=== PATIENT | female | born 1955 | race Hispanic/Latino ===

== ENCOUNTER 2017-05-15 16:29 | Inpatient (IN) | payer SELFPAY ==
[2017-05-15 16:34] VITALS: BMI 28.7
--- NOTE | 2017-05-15 17:11 | ED PDOC ---
HPI: Psych/Substance Abuse Time Seen by Provider: 05/15/17 16:45 Chief Complaint (Nursing): Psychiatric Evaluation Chief Complaint (Provider): Psychiatric Evaluation History Per: Patient History/Exam Limitations: no limitations Current Symptoms Are (Timing): Still Present Additional Complaint(s): 61 y/o female with a past medical history of depression and hypercholesterolemia who presents to the emergency department with a complaint of having suicidal ideation. Reports she wants to kill herself but does not have any active plans. Patient states she lives alone and gets counseling regularly 2-3 times a week by a group that visits her at home. Denies chest pain , shortness of breath, headache, dizziness, fever, chills, abdominal pain, or urinary symptoms. PMD: Dr. Finn Anderson MD Past Medical History Reviewed: Historical Data, Nursing Documentation, Vital Signs Vital Signs: Last Vital Signs Temp 98.1 F 05/15/17 16:33 Pulse 74 05/15/17 16:33 Resp 16 05/15/17 16:33 BP 165/100 H 05/15/17 16:33 Pulse Ox 100 05/15/17 16:33 - Medical History PMH: Depression, Hypercholesterolemia - Surgical History Other surgeries: Oophorectomy (left) with adhesion complications - Family History Family History: States: Unknown Family Hx - Social History Current smoker - smoking cessation education provided: No Alcohol: None Drugs: Denies - Home Medications Home Medications: Ambulatory Orders Medication Instructions Recorded Aspirin [Adult Low Dose Aspirin EC] 1 tab PO DAILY 05/15/17 DULoxetine [Cymbalta] 1 tab PO DAILY 05/15/17 Risperidone [Risperdal] 1 tab PO DAILY 05/15/17 Simvastatin [Zocor] 1 tab PO DAILY 05/15/17 - Allergies Allergies/Adverse Reactions: Allergies Allergy/AdvReac Type Severity Reaction Status Date / Time No Known Allergies Allergy Verified 05/15/17 16:33 Review of Systems ROS Statement: Except As Marked, All Systems Reviewed And Found Negative Constitutional: Negative for: Fever, Chills Cardiovascular: Negative for: Chest Pain Respiratory: Negative for: Shortness of Breath Gastrointestinal: Negative for: Abdominal Pain Genitourinary Female: Negative for: Dysuria, Frequency, Incontinence, Hematuria Neurological: Negative for: Headache, Dizziness Psych: Positive for: Depression, Suicidal ideation Physical Exam - Reviewed Nursing Documentation Reviewed: Yes Vital Signs Reviewed: Yes - Physical Exam Appears: Positive for: Non-toxic, No Acute Distress Head Exam: Positive for: ATRAUMATIC, NORMAL INSPECTION, NORMOCEPHALIC Skin: Positive for: Normal Color, Warm, Dry Neck: Positive for: Normal, Supple Cardiovascular/Chest: Positive for: Regular Rate, Rhythm. Negative for: Murmur Respiratory: Positive for: Normal Breath Sounds. Negative for: Accessory Muscle Use, Respiratory Distress Gastrointestinal/Abdominal: Positive for: Normal Exam, Soft. Negative for: Tenderness Extremity: Positive for: Normal ROM. Negative for: Pedal Edema Neurologic/Psych: Positive for: Alert, Oriented (x3) - Laboratory Results Result Diagrams: 05/15/17 20:10 05/15/17 20:10 - ECG O2 Sat by Pulse Oximetry: 100 (RA) Pulse Ox Interpretation: Normal Medical Decision Making Medical Decision Making: Time: 1651 Initial Impression: Suicidal ideation status post depression Initial Plan: --Crisis Evaluation As Ordered: Evaluation will indicate if patient meets criteria for admission. Time: 20:10 --Alcohol Serum --BMP --Drug Screen, Urine --EKG --CBC w/ diff --Chest x-ray --Urinalysis --Reevaluation Scribe~Attestation: Documented by Geetha Ponce, acting as a scribe for Rochelle Hudson MD. Provider Scribe~Attestation: All medical record entries made by the Scribe were at my direction and personally dictated by me. I have reviewed the chart and agree that the record accurately reflects my personal performance of the history, physical exam, medical decision making, and the department course for this patient. I have also personally directed, reviewed, and agree with the discharge instructions and disposition. 9.09 - ekg, chest x-ray, labs reviewed. Patient is medically cleared Disposition - Clinical Impression Clinical Impression: Depression - Patient ED Disposition Is Patient to be Admitted: Yes Doctor Will See Patient In The: Hospital - Disposition Disposition: Transfer of Care Disposition Time: 21:10 Condition: STABLE Forms: [facility] ([place]jiboutian) - Pt Status Changed To: Hospital Disposition Of: Inpatient - Admit Certification Admit to Inpatient:: After my assessment, the patient will require hospitalization for at least two midnights. This is because of the severity of symptoms shown, intensity of services needed, and/or the medical risk in this patient being treated as an outpatient. - POA Present On Arrival: None
[2017-05-15 20:18] LABS: BASO % 0.4 % (0.0-2.0); EOS % 0.1 % (0.0-4.0); HEMATOCRIT 42.5 % (34.0-47.0); LYMPH # 0.7 K/uL (1.0-4.3); MEAN CELL VOLUME 89.3 fl (81.0-99.0); MEAN CORPUSCULAR HEMOGLOBIN 29.3 pg (27.0-31.0); MEAN CORPUSCULAR HGB CONC 32.8 g/dL (33.0-37.0); MEAN PLATELET VOLUME 8.7 fl (7.2-11.7); MONO # 0.4 K/uL (0.0-0.8); MONO % 4.7 % (0.0-10.0); NEUT # 7.1 K/uL (1.8-7.0); NEUT % 85.8 % (50.0-75.0); NRBC % 0.1 % (0.0-0.0); PLATELET COUNT 185 K/uL (130-400); WHITE BLOOD COUNT 8.3 K/uL (4.8-10.8)
[2017-05-15 20:32] LABS: RBC URINE 4 /hpf (0-3); URINE BACTERIA RARE (<OCC); URINE BILIRUBIN NEGATIVE (NEGATIVE); URINE BLOOD NEGATIVE (NEGATIVE); URINE COLOR YELLOW (YELLOW); URINE GLUCOSE (UA) NEG (Normal); URINE KETONE TRACE mg/dL (NEGATIVE); URINE LEUKOCYTE ESTERASE NEG Leu/uL (Negative); URINE PROTEIN 30 mg/dL (NEGATIVE); URINE UROBILINOGEN 0.2-1.0 mg/dL (0.2-1.0); WBC URINE 5 /hpf (0-5)
[2017-05-15 20:33] LABS: ALCOHOL SERUM < 10 mg/dl (0-10); BLOOD UREA NITROGEN 15 mg/dl (7-17); CALCIUM 9.6 mg/dL (8.4-10.2); CARBON DIOXIDE 25 mmol/L (22-30); CHLORIDE 108 mmol/L (98-107); GFR AFRICAN-AMERICAN > 60; GLUCOSE,RANDOM 124 mg/dL (65-105); POTASSIUM 4.2 MMOL/L (3.6-5.0); SODIUM 143 mmol/l (132-148)
[2017-05-15 22:43] LABS: NEUTROPHIL 85 % (42-75); TOTAL CELLS COUNTED 100
[2017-05-15 23:07] VITALS: O2SAT 96
[2017-05-16] MEDS ORDERED: Alum-Mag Hydrox-Simethicone Susp (30 mL) PO PRN (00:45)
[2017-05-16] MEDS ORDERED: DiphenhydrAMINE 50 mg/ml Inj IM PRN (00:45)
[2017-05-16] MEDS ORDERED: Magnesium Hydroxide Susp 30 ml UD PO PRN (00:45)
--- NOTE | 2017-05-16 05:12 | PCM.BM ---
<Remedios Teixeira - Last Filed: 05/16/17 05:10> Treatment assets and liabiliti Patient Assests: cooperative, motivated, resourceful, self-reliant, ADL independent, good support system, negotiates basic needs, good past tx response Patient Liabilities: live alone - Milieu Protocol Maintain good personal hygiene: daily Encourage regular showers, other Remind patient to perform daily oral care Conduct patient checks and document Observation sheet: Q15 minutes Maintain personal safety: every shift Educate patient to report safety concerns to staff, every shift Monitor environment for contraband/sharps Medication safety: Monitor for expected outcome, potential side effects: every shift, Assess barriers to learning: daily, Assess readiness for medication education: daily <Joanne Marc - Last Filed: 05/18/17 16:15> Treatment assets and liabiliti Patient Assests: adapts well, cooperative, insightful, motivated, resourceful, self-reliant, ADL independent, good support system, negotiates basic needs, good past tx response, good interpersonal skills Family Contact Family involvement: Family/SO is involved Family contact: Patient agrees to contact, Family has been contacted by patient , Telephone contact initiated by staff Family contact name: Sancho (son)([phone]) Family contacted how many times per week?: 2 Family contact comment: see note. - Outside Agency Agency 1 Care involvment: Following patient during stay, Other Agency contact name: [facility] Agency contact number: ([phone]) - Goals for Treatment Patient goals for treatment: Patient to continue stabilization on 3NP through medication management and group/supportive therapy. Patient to be encouraged to attend groups regularly to promote self-awareness, compliance, and improve insight, coping skills and self-esteem. Patient to be provided with referral for appropriate level of aftercare to reduce risk of future hospitalizations and ensure safety in the community. Discharge/Continuing Care - Education Needs Education Needs: Family Medication, Family Coping Skills, Family Community resources, Family Aftercare Safety Plan, Patient Medication, Patient Coping Skills, Patient Community resources, Patient Aftercare Safety Plan - Discharge Discharge Criteria: Tolerates medication w/o severe side effects, Free of Suicidal thoughts, Free of agitation, Normal sleep pattern, Ability to care for self, Reduction of target symptoms Discharge to:: Home, Other - Treatment Team Participation Patient/Family/SO Statement: 05/18/17 16:16 Patient was able to attend and participate in tx team this morning. Patient reports improvement in symptoms of depression since admission but continues to report symptoms of depression and anxiety. Patient visible on 3NP and observed socializing appropriately with select peers. Patient calm,cooperative and pleasant. Patient motivated for tx. Possibility of PHP referrals discussed. Patient agreeable. Patient denied SI/HI and is able to contract for safety on 3NP. 05/18/17 16:18 Discussed with Family/SO: Yes Was Patient/Family/SO present at Treatment Team Meeting: Yes <Luz Mercado - Last Filed: 05/19/17 13:32> - Diagnosis (1) Depression Status: Acute Interventions: 05/19/17 13:32 psychotherapy, pharmacotherapy
--- NOTE | 2017-05-16 08:20 | RAD ---
HISTORY: medical clearance COMPARISON: Chest radiographs 10/20/2012. TECHNIQUE: Chest PA and lateral FINDINGS: LUNGS: No active pulmonary disease. Right hemidiaphragm again appears elevated from indeterminate etiology. PLEURA: No significant pleural effusion identified. No pneumothorax apparent. CARDIOVASCULAR: Borderline cardiomegaly. OSSEOUS STRUCTURES: Sternotomy wires and surgical clips in the mediastinum are again appreciated suggesting prior CABG. VISUALIZED UPPER ABDOMEN: Normal. OTHER FINDINGS: None. IMPRESSION: No interval acute cardiopulmonary is radial over hemidiaphragm again appreciated as well as postop change suggestive of a CABG. Borderline cardiomegaly again evident.
[2017-05-16 08:37] LABS: T4 11.5 ug/dl (5.5-11.0)
[2017-05-16 08:51] LABS: THYROID STIMULATING HORMONE 1.73 mIU/ML (0.46-4.68)
--- NOTE | 2017-05-16 15:14 | CARD ---
APPROVED REPORT EKG Measurement Heart [id number] <Conclusion> Atrial fibrillation Nonspecific ST and T wave abnormality Abnormal ECG
--- NOTE | 2017-05-16 15:31 | CP.PCM.CON ---
History of Present Illness - History of Present Illness History of Present Illness: Reason for Consult: per hospital protocol HPI: 61 year old female PMH AFIB and hyperlipidemia is admitted to psych for depression. She denies any other symptoms at this time. Consult for management of AFIB and HLD. Currently rate controlled and on ASA, and continues statin. HD stable, NAD ROS: Per HPI, all other systems reviewed and neg PMH: AFIB, HLD, hx of lymphoma and breast CA PSH: L Ovary removal, adhesions, mastectomy FH: denies SH: denies tobacco, ETOH, IVDU NKDA Vitals Reviewed Temp Pulse Resp BP Pulse Ox 99 F 94 H 18 146/75 96 05/16/17 09:00 05/16/17 09:00 05/16/17 09:00 05/16/17 09:00 05/15/17 23:06 GEN: WDWN, ALERT, COOPERATIVE HEENT: NCAT, PERRL, EOMI HEART: RRR, +S1S2, NO MRG LUNG: CTAB, NO WRR ABD: SOFT, NT, ND, NO HSM, NO MASSES EXT: NORMAL PEDAL PULSES, GOOD CAPILLARY REFILL NEURO: AAOX3, STRENGTH EQUAL BILATERAL UPPER AND LOWER EXTREMITIES SKIN: WARM, DRY PSYCH: NORMAL MOOD, NORMAL AFFECT LABS Most Recent Lab Values WBC 8.3 K/uL (4.8-10.8) 05/15/17 20:10 RBC 4.76 Mil/uL (3.80-5.20) 05/15/17 20:10 Hgb 14.0 g/dL (12.0-16.0) 05/15/17 20:10 Hct 42.5 % (34.0-47.0) 05/15/17 20:10 MCV 89.3 fl (81.0-99.0) 05/15/17 20:10 MCH 29.3 pg (27.0-31.0) 05/15/17 20:10 MCHC 32.8 g/dL (33.0-37.0) L 05/15/17 20:10 RDW 14.0 % (11.5-14.5) 05/15/17 20:10 Plt Count 185 K/uL (130-400) 05/15/17 20:10 MPV 8.7 fl (7.2-11.7) 05/15/17 20:10 Neut % (Auto) 85.8 % (50.0-75.0) H 05/15/17 20:10 Lymph % (Auto) 9.0 % (20.0-40.0) L 05/15/17 20:10 [place] % (Auto) 4.7 % (0.0-10.0) 05/15/17 20:10 Eos % (Auto) 0.1 % (0.0-4.0) 05/15/17 20:10 Baso % (Auto) 0.4 % (0.0-2.0) 05/15/17 20:10 Neut # 7.1 K/uL (1.8-7.0) H 05/15/17 20:10 Lymph # 0.7 K/uL (1.0-4.3) L 05/15/17 20:10 [place] # 0.4 K/uL (0.0-0.8) 05/15/17 20:10 Eos # 0.0 K/uL (0.0-0.7) 05/15/17 20:10 Baso # 0.0 K/uL (0.0-0.2) 05/15/17 20:10 Neutrophils % (Manual) 85 % (42-75) H 05/15/17 20:10 Lymphocytes % (Manual) 12 % (20-50) L 05/15/17 20:10 Monocytes % (Manual) 3 % (0-10) 05/15/17 20:10 Platelet Estimate Normal (NORMAL) 05/15/17 20:10 Macrocytosis (manual) Slight 05/15/17 20:10 Sodium 143 mmol/l (132-148) 05/15/17 20:10 Potassium 4.2 MMOL/L (3.6-5.0) 05/15/17 20:10 Chloride 108 mmol/L (98-107) H 05/15/17 20:10 Carbon Dioxide 25 mmol/L (22-30) 05/15/17 20:10 Anion Gap 14 (10-20) 05/15/17 20:10 BUN 15 mg/dl (7-17) 05/15/17 20:10 Creatinine 0.8 mg/dl (0.7-1.2) 05/15/17 20:10 Est GFR ( Amer) > 60 05/15/17 20:10 Est GFR (Non-Af Amer) > 60 05/15/17 20:10 Random Glucose 124 mg/dL (65-105) H 05/15/17 20:10 Calcium 9.6 mg/dL (8.4-10.2) 05/15/17 20:10 Triglycerides 65 mg/DL (0-149) 05/16/17 07:30 Cholesterol 154 mg/dL (0-199) 05/16/17 07:30 LDL Cholesterol Direct 77 mg/dL (0-129) 05/16/17 07:30 HDL Cholesterol 56 MG/DL (30-70) 05/16/17 07:30 Thyroxine (T4) 11.5 ug/dl (5.5-11.0) H 05/16/17 07:30 Total T3 0.974 nmol/L (1.49-2.60) L 05/16/17 07:30 TSH 3rd Generation 1.73 mIU/ML (0.46-4.68) 05/16/17 07:30 Urine Color Yellow (YELLOW) 05/15/17 20:10 Urine Clarity Cloudy (Clear) 05/15/17 20:10 Urine pH 7.0 (5.0-8.0) 05/15/17 20:10 Ur Specific [place] 1.025 (1.003-1.030) 05/15/17 20:10 Urine Protein 30 mg/dL (NEGATIVE) 05/15/17 20:10 Urine Glucose (UA) Neg mg/dL (Normal) 05/15/17 20:10 Urine Ketones Trace mg/dL (NEGATIVE) 05/15/17 20:10 Urine Blood Negative (NEGATIVE) 05/15/17 20:10 Urine Nitrate Negative (NEGATIVE) 05/15/17 20:10 Urine Bilirubin Negative (NEGATIVE) 05/15/17 20:10 Urine Urobilinogen 0.2-1.0 mg/dL (0.2-1.0) 05/15/17 20:10 Ur Leukocyte Esterase Neg Mac/uL (Negative) 05/15/17 20:10 Urine RBC (Auto) 4 /hpf (0-3) H 05/15/17 20:10 Urine Microscopic WBC 5 /hpf (0-5) 05/15/17 20:10 Ur Squamous Epith Cells 7 /hpf (0-5) H 05/15/17 20:10 Amorphous Sediment Rare /ul (<OCC) H 05/15/17 20:10 Urine Bacteria Rare (<OCC) 05/15/17 20:10 Urine Opiates Screen Negative (NEGATIVE) 05/15/17 20:10 Urine Methadone Screen Negative (NEGATIVE) 05/15/17 20:10 Ur Barbiturates Screen Negative (NEGATIVE) 05/15/17 20:10 Ur Phencyclidine Scrn Negative (NEGATIVE) 05/15/17 20:10 Ur Amphetamines Screen Negative (NEGATIVE) 05/15/17 20:10 U Benzodiazepines Scrn Negative (NEGATIVE) 05/15/17 20:10 U Oth Cocaine Metabols Negative (NEGATIVE) 05/15/17 20:10 U Cannabinoids Screen Negative (NEGATIVE) 05/15/17 20:10 Alcohol, Quantitative < 10 mg/dl (0-10) 05/15/17 20:10 ASSESSMENT AND PLAN 61 year old female PMH AFIB and hyperlipidemia is admitted to psych for depression. She denies any other symptoms at this time. Consult for management of AFIB and HLD. Currently rate controlled and on ASA, and continues statin. HD stable, NAD AFIB continue ASA rate controlled, not on any other agents HLD continue statin Depression management per psych Past Patient History - Past Social History Alcohol: None Drugs: Denies - CARDIAC Hx Cardiac Disorders: Yes (high cholesterol) - PULMONARY Hx Respiratory Disorders: No - NEUROLOGICAL Hx Neurological Disorder: No - HEENT Hx HEENT Problems: No - RENAL Hx Chronic Kidney Disease: No - ENDOCRINE/METABOLIC Hx Endocrine Disorders: No - HEMATOLOGICAL/ONCOLOGICAL Hx Blood Disorders: No - INTEGUMENTARY Hx Dermatological Problems: No - MUSCULOSKELETAL/RHEUMATOLOGICAL Hx Musculoskeletal Disorders: No - GASTROINTESTINAL Hx Gastrointestinal Disorders: No - GENITOURINARY/GYNECOLOGICAL Hx Genitourinary Disorders: No - PSYCHIATRIC Hx Substance Use: No - SURGICAL HISTORY Hx Surgeries: Yes Other/Comment: ovarian removal, lymphoma removal via chest - ANESTHESIA Hx Anesthesia: Yes Hx Anesthesia Reactions: No Meds Allergies/Adverse Reactions: Allergies Allergy/AdvReac Type Severity Reaction Status Date / Time No Known Allergies Allergy Verified 05/15/17 16:33 - Medications Medications: Current Medications Acetaminophen (Tylenol 325mg Tab) 650 mg PO Q4 PRN PRN Reason: T>101;headache;pain 1-7 Al Hydrox/Mg Hydrox/Simethicone (Maalox Plus 30 Ml) 30 ml PO Q4 PRN PRN Reason: Dyspepsia Diphenhydramine HCl (Benadryl) 50 mg IM Q6 PRN PRN Reason: Extrapyramidal S/S Unable PO Diphenhydramine HCl (Benadryl) 50 mg PO Q6 PRN PRN Reason: Extrapyramidal Symptoms Diphenhydramine HCl (Benadryl) 50 mg PO HS PRN PRN Reason: Sleep Haloperidol (Haldol) 5 mg PO Q4 PRN PRN Reason: Agitation Haloperidol Lactate (Haldol) 5 mg IM Q4 PRN PRN Reason: Agitation, Unable to Take PO Lorazepam (Ativan) 2 mg IM Q4 PRN PRN Reason: Anxiety/Agitation,Unable PO Lorazepam (Ativan) 2 mg PO Q4 PRN PRN Reason: Anxiety/Agitation Magnesium Hydroxide (Milk Of Magnesia) 30 ml PO HS PRN PRN Reason: Constipation Results - Vital Signs Recent Vital Signs: Last Vital Signs Temp 99 F 05/16/17 09:00 Pulse 94 H 05/16/17 09:00 Resp 18 05/16/17 09:00 BP 146/75 05/16/17 09:00 Pulse Ox 96 05/15/17 23:06 - Labs Result Diagrams: 05/15/17 20:10 05/15/17 20:10 Labs: Laboratory Results - last 24 hr 05/15/17 05/15/17 05/15/17 20:10 20:10 20:10 WBC 8.3 RBC 4.76 Hgb 14.0 Hct 42.5 MCV 89.3 MCH 29.3 MCHC 32.8 L RDW 14.0 Plt Count 185 MPV 8.7 Neut % (Auto) 85.8 H Lymph % (Auto) 9.0 L [place] % (Auto) 4.7 Eos % (Auto) 0.1 Baso % (Auto) 0.4 Neut # 7.1 H Lymph # 0.7 L [place] # 0.4 Eos # 0.0 Baso # 0.0 Neutrophils % (Manual) 85 H Lymphocytes % (Manual) 12 L Monocytes % (Manual) 3 Platelet Estimate Normal Macrocytosis (manual) Slight Sodium 143 Potassium 4.2 Chloride 108 H Carbon Dioxide 25 Anion Gap 14 BUN 15 Creatinine 0.8 Est GFR ( Amer) > 60 Est GFR (Non-Af Amer) > 60 Random Glucose 124 H Calcium 9.6 Triglycerides Cholesterol LDL Cholesterol Direct HDL Cholesterol Thyroxine (T4) Total T3 TSH 3rd Generation Urine Color Urine Clarity Urine pH Ur Specific [place] Urine Protein Urine Glucose (UA) Urine Ketones Urine Blood Urine Nitrate Urine Bilirubin Urine Urobilinogen Ur Leukocyte Esterase Urine RBC (Auto) Urine Microscopic WBC Ur Squamous Epith Cells Amorphous Sediment Urine Bacteria Urine Opiates Screen Negative Urine Methadone Screen Negative Ur Barbiturates Screen Negative Ur Phencyclidine Scrn Negative Ur Amphetamines Screen Negative U Benzodiazepines Scrn Negative U Oth Cocaine Metabols Negative U Cannabinoids Screen Negative Alcohol, Quantitative < 10 05/15/17 05/16/17 20:10 07:30 WBC RBC Hgb Hct MCV MCH MCHC RDW Plt Count MPV Neut % (Auto) Lymph % (Auto) [place] % (Auto) Eos % (Auto) Baso % (Auto) Neut # Lymph # [place] # Eos # Baso # Neutrophils % (Manual) Lymphocytes % (Manual) Monocytes % (Manual) Platelet Estimate Macrocytosis (manual) Sodium Potassium Chloride Carbon Dioxide Anion Gap BUN Creatinine Est GFR ( Amer) Est GFR (Non-Af Amer) Random Glucose Calcium Triglycerides 65 Cholesterol 154 LDL Cholesterol Direct 77 HDL Cholesterol 56 Thyroxine (T4) 11.5 H Total T3 0.974 L TSH 3rd Generation 1.73 Urine Color Yellow Urine Clarity Cloudy Urine pH 7.0 Ur Specific [place] 1.025 Urine Protein 30 Urine Glucose (UA) Neg Urine Ketones Trace Urine Blood Negative Urine Nitrate Negative Urine Bilirubin Negative Urine Urobilinogen 0.2-1.0 Ur Leukocyte Esterase Neg Urine RBC (Auto) 4 H Urine Microscopic WBC 5 Ur Squamous Epith Cells 7 H Amorphous Sediment Rare H Urine Bacteria Rare Urine Opiates Screen Urine Methadone Screen Ur Barbiturates Screen Ur Phencyclidine Scrn Ur Amphetamines Screen U Benzodiazepines Scrn U Oth Cocaine Metabols U Cannabinoids Screen Alcohol, Quantitative
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
--- NOTE | 2017-05-17 17:11 | PCM.PYCHPN ---
Psychiatric Progress Note - Psychiatric Progress Note Patient seen today, length of contact: case discussed with team chart reviewed Patient Chief Complaint: pt reports did not sleep well last night, reflecting on life, believes is depressed and admits that there has been some vacilations in mood, denies psychosis Problems Identified/Issues Discussed: change in mood, depressed, seated in social area, by self, change from [id number] Medical Problems: per chart Diagnostic Results: per medicine per psychiatry per nursing per transition social worker DSM 5 Symptoms Update: mood change, depressed Medication Change: Yes (increase rispderdal to 1mg po hs) Medical Record Reviewed: Yes Consults ordered or reviewed: pt seen by hospitalist Mental Status Examination - Cognitive Function Orientation: Person, Place, Situation, Time Attention: Poor Concentration: Poor Association: WNL Fund of Knowledge: WNL Decription of patient's judgement and insights: impaired - Mood Mood: Depressed - Affect Affect: Constricted - Formal Thought Process Formal Thought Process: No Impairment - Suicidal Ideation Plan: contemplating health history - Homicidal Ideation Homicidal Ideation: No Goal/Treatment Plan - Goal/Treatment Plan Progress Toward Problem(s) and Goals/Treatment Plan: inpt admission per attending vital signs and clinical assessment per protocol and per status restart rx per pact team prior to admission increase rispderdal to 1mg po hs being followed by hospitalist team to obtain collaborative information thursday pact team discharge planning in progress Estimated Date of D/C: 05/21/17 - Smoking Cessation Smoking Cessation Initiated: No Reason for not providing: deferred
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
--- NOTE | 2017-05-19 13:37 | PCM.PYCHPN ---
Psychiatric Progress Note - Psychiatric Progress Note Patient seen today, length of contact: case discussed with team chart reviewed Patient Chief Complaint: I am feeling better my [employer] visited me Problems Identified/Issues Discussed: PT ON evaluation, reported better mood , brighter affect, reported having better sleep and stated that attended the groups has been helpful in challenging her negative thoughts , no side effects of medications, denied any current suicidal or homicidal ideaions DSM 5 Symptoms Update: major depression recurrent severe Medication Change: Yes (INCREASE CYMBALTA) Medical Record Reviewed: Yes Mental Status Examination - Cognitive Function Orientation: Person, Place, Situation, Time Attention: Poor Concentration: Poor Association: WNL Fund of Knowledge: WNL - Mood Mood: Depressed, Anxious - Affect Affect: Constricted - Speech Speech: Soft - Formal Thought Process Formal Thought Process: No Impairment Psychotic Thoughts and Behaviors: PT DENIED ANY CURRENT PSYCHOTIC SYMPTOMS, NON ELICITED - Suicidal Ideation Suicidal Ideation: No - Homicidal Ideation Homicidal Ideation: No Goal/Treatment Plan - Goal/Treatment Plan Need for Continued Stay: Severe depression anxiety, Discharge may exacerbated symptoms Progress Toward Problem(s) and Goals/Treatment Plan: INCREASE CYMBALTA TO 90MG CONTINUE WITH RISPERIDONE 1MG CBT GROUP AND SUPPORTIVE THERAPY Estimated Date of D/C: 05/21/17
--- NOTE | 2017-05-20 13:50 | PCM.PYCHPN ---
Psychiatric Progress Note - Psychiatric Progress Note Patient seen today, length of contact: case discussed with team chart reviewed Patient Chief Complaint: I need to learn how to let go of my children Problems Identified/Issues Discussed: PT ON evaluation, appeared depressed and tearful, stated feeling sad she would not be able to see her children till , discussed with pt possible coping skills with seperation from children,pt continues to attend groups no side effects of medications, denied any current suicidal or homicidal ideaions DSM 5 Symptoms Update: major depression Medication Change: No (INCREASE CYMBALTA) Medical Record Reviewed: Yes Mental Status Examination - Cognitive Function Orientation: Person, Place, Situation, Time Attention: WNL Concentration: WNL Association: WNL Fund of Knowledge: WNL - Mood Mood: Depressed, Anxious - Affect Affect: Constricted - Speech Speech: Soft - Formal Thought Process Formal Thought Process: No Impairment Psychotic Thoughts and Behaviors: PT DENIED ANY CURRENT PSYCHOTIC SYMPTOMS, NON ELICITED - Suicidal Ideation Suicidal Ideation: No - Homicidal Ideation Homicidal Ideation: No Goal/Treatment Plan - Goal/Treatment Plan Need for Continued Stay: Severe depression anxiety, Discharge may exacerbated symptoms Progress Toward Problem(s) and Goals/Treatment Plan: continue CYMBALTA 90MG CONTINUE WITH RISPERIDONE 1MG CBT GROUP AND SUPPORTIVE THERAPY Estimated Date of D/C: 05/21/17
[2017-05-21 09:11] VITALS: BP 142/100; PULSE 92; RESP 20; TEMP 98.1
--- NOTE | 2017-05-21 13:22 | PCM.PYCHPN ---
Psychiatric Progress Note - Psychiatric Progress Note Patient seen today, length of contact: case discussed with team chart reviewed Patient Chief Complaint: I am able to handle things in a more realistic way Problems Identified/Issues Discussed: PT appeared less depressed with brighter affect, continues to need help with possible coping skills with feeling lonely at home ,continues to attend groups no side effects of medications, denied any current suicidal or homicidal ideaions DSM 5 Symptoms Update: major depression recurrent severe Medication Change: No Medical Record Reviewed: Yes Mental Status Examination - Cognitive Function Orientation: Person, Place, Situation, Time Attention: WNL Concentration: WNL Association: WNL Fund of Knowledge: WNL - Mood Mood: Anxious - Affect Affect: Constricted - Speech Speech: Soft - Formal Thought Process Formal Thought Process: No Impairment Psychotic Thoughts and Behaviors: PT DENIED ANY CURRENT PSYCHOTIC SYMPTOMS, NON ELICITED - Suicidal Ideation Suicidal Ideation: No - Homicidal Ideation Homicidal Ideation: No Goal/Treatment Plan - Goal/Treatment Plan Need for Continued Stay: Severe depression anxiety, Discharge may exacerbated symptoms Progress Toward Problem(s) and Goals/Treatment Plan: continue CYMBALTA 90MG CONTINUE WITH RISPERIDONE 1MG CBT GROUP AND SUPPORTIVE THERAPY Estimated Date of D/C: 05/21/17
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
== END 2017-05-22 12:39 | disposition home or self-care (01) | DRG 881 ==
LOC: H.ER 16:29 → H.ERHOLD 21:11 → H.PSYCH 05-16 00:31
PROVIDERS: ADMIT Psychiatry & Neurology Psychiatry; ATTEND Psychiatry & Neurology Psychiatry
PROC: GZHZZZZ Group Psychotherapy (ICD-10-PCS; principal; 2017-05-15)
PROC: GZ58ZZZ Individual Psychotherapy, Cognitive-Behavioral (ICD-10-PCS; 2017-05-15)
PROC: GZ56ZZZ Individual Psychotherapy, Supportive (ICD-10-PCS; 2017-05-15)
DX: F32.9 Major depressive disorder, single episode, unspecified (principal); R45.851 Suicidal ideations; I48.91 Unspecified atrial fibrillation; E78.00 Pure hypercholesterolemia, unspecified; E78.5 Hyperlipidemia, unspecified; Z85.3 Personal history of malignant neoplasm of breast; Z85.72 Personal history of non-Hodgkin lymphomas

== ENCOUNTER 2017-05-25 08:51 | Inpatient (IN) | payer MEDICARE ==
[2017-05-25 08:52] VITALS: BMI 28.7
--- NOTE | 2017-05-25 09:09 | ED PDOC ---
HPI: Psych/Substance Abuse Time Seen by Provider: 05/25/17 08:59 Chief Complaint (Nursing): Psychiatric Evaluation Chief Complaint (Provider): Depression History Per: Patient History/Exam Limitations: no limitations Onset/Duration Of Symptoms: Days (Today) Additional Complaint(s): Pt. states she feels depressed and paranoid as she does not hear any noise in her building. States not suicidal or homicidal. Was admitted to psych for 1 week and dc on Thursday. Denies drugs or etoh. No chest pain, dyspnea, weakness. No abd pain. Past Medical History Reviewed: Nursing Documentation, Vital Signs Vital Signs: Last Vital Signs Temp 97.3 F L 05/25/17 08:54 Pulse 98 H 05/25/17 08:54 Resp 18 05/25/17 08:54 BP 169/75 H 05/25/17 08:54 Pulse Ox 97 05/25/17 08:54 - Medical History PMH: Anxiety, Bipolar Disorder, Depression, Hypercholesterolemia Denies: Diabetes, Hepatitis, HIV, HTN, Chronic Kidney Disease, Seizures, Sexually Transmitted Disease - Surgical History Surgical History: No Surg Hx - Family History Family History: States: Unknown Family Hx - Social History Current smoker - smoking cessation education provided: No Alcohol: None Drugs: Denies - Home Medications Home Medications: Ambulatory Orders Medication Instructions Recorded Simvastatin [Zocor] 1 tab PO DAILY 05/15/17 DULoxetine [Cymbalta] 30 mg PO HS 30 Days #30 ecc 05/22/17 risperiDONE [RisperDAL Tab] 1 mg PO HS 30 Days #30 tab 05/22/17 DULoxetine [Cymbalta] 60 mg PO HS 05/25/17 - Allergies Allergies/Adverse Reactions: Allergies Allergy/AdvReac Type Severity Reaction Status Date / Time No Known Allergies Allergy Verified 05/25/17 08:54 Review of Systems ROS Statement: Except As Marked, All Systems Reviewed And Found Negative Psych: Positive for: Depression. Negative for: Suicidal ideation Physical Exam - Reviewed Nursing Documentation Reviewed: Yes Vital Signs Reviewed: Yes - Physical Exam Appears: Positive for: Non-toxic, No Acute Distress Head Exam: Positive for: ATRAUMATIC, NORMAL INSPECTION, NORMOCEPHALIC Skin: Positive for: Normal Color, Warm, DRY Eye Exam: Positive for: EOMI, Normal appearance, PERRL ENT: Positive for: Normal ENT Inspection Neck: Positive for: Normal, Painless ROM Cardiovascular/Chest: Positive for: Regular Rate, Rhythm Respiratory: Positive for: CNT, Normal Breath Sounds Gastrointestinal/Abdominal: Positive for: Normal Exam, Bowel Sounds, Soft Back: Positive for: Normal Inspection. Negative for: L CVA Tenderness, R CVA Tenderness Extremity: Positive for: Normal ROM. Negative for: Tenderness, Pedal Edema Neurologic/Psych: Positive for: Alert, Oriented - Laboratory Results Result Diagrams: 05/25/17 10:00 05/25/17 10:00 - ECG O2 Sat by Pulse Oximetry: 97 Pulse Ox Interpretation: Normal - Progress ED Course And Treament: 1107: Crisis saw pt. and will admit. Stable medically at this time for crisis eval. Disposition - Clinical Impression Clinical Impression: Depression - Patient ED Disposition Is Patient to be Admitted: Yes Counseled Patient/Family Regarding: Studies Performed - Disposition Disposition Time: 10:07 Condition: STABLE - Pt Status Changed To: Hospital Disposition Of: Inpatient - Admit Certification Admit to Inpatient:: After my assessment, the patient will require hospitalization for at least two midnights. This is because of the severity of symptoms shown, intensity of services needed, and/or the medical risk in this patient being treated as an outpatient. - POA Present On Arrival: None
[2017-05-25 10:18] LABS: BASO # 0.1 K/uL (0.0-0.2); BASO % 0.8 % (0.0-2.0); HEMOGLOBIN 14.4 g/dL (12.0-16.0); LYMPH # 0.5 K/uL (1.0-4.3); LYMPH % 6.2 % (20.0-40.0); MEAN CELL VOLUME 89.9 fl (81.0-99.0); MEAN CORPUSCULAR HEMOGLOBIN 28.6 pg (27.0-31.0); MEAN CORPUSCULAR HGB CONC 31.8 g/dL (33.0-37.0); MEAN PLATELET VOLUME 8.6 fl (7.2-11.7); MONO # 0.4 K/uL (0.0-0.8); MONO % 5.3 % (0.0-10.0); NEUT # 7.1 K/uL (1.8-7.0); NEUT % 87.7 % (50.0-75.0); NRBC % 0.1 % (0.0-0.0); PLATELET COUNT 183 K/uL (130-400); RBC 5.05 Mil/uL (3.80-5.20); RED CELL DISTRIBUTION WIDTH 14.3 % (11.5-14.5); WHITE BLOOD COUNT 8.1 K/uL (4.8-10.8)
[2017-05-25 10:31] LABS: BLOOD UREA NITROGEN 19 mg/dl (7-17); CALCIUM 9.8 mg/dL (8.4-10.2); GFR AFRICAN-AMERICAN > 60; GFR NON-AFRICAN AMERICAN > 60
[2017-05-25 11:01] LABS: BARBITURATES, UR NEGATIVE (NEGATIVE); BENZODIAZEPINES, UR NEGATIVE (NEGATIVE); OPIATES, UR NEGATIVE (NEGATIVE); PHENCYCLIDINE, UR NEGATIVE (NEGATIVE)
[2017-05-25 11:31] LABS: BASOPHIL 1 % (0-2); LYMPHOCYTE 7 % (20-50); MONOCYTE 5 % (0-10); NEUTROPHIL 87 % (42-75); PLATELET ESTIMATE NORMAL (NORMAL); TOTAL CELLS COUNTED 100
[2017-05-25 11:32] LABS: ANISOCYTOSIS SLIGHT; OVALOCYTES SLIGHT
[2017-05-25 12:57] VITALS: O2SAT 100
--- NOTE | 2017-05-25 14:51 | CP.PCM.CON ---
History of Present Illness - History of Present Illness History of Present Illness: Reason for Consult: per hospital protocol HPI: 61 year old female PMH AFIB and hyperlipidemia is admitted to psych for depression and paranoia. Pt was recently discharged in the past week. She denies any other symptoms at this time. Consult for management of AFIB and HLD. Currently rate controlled and on ASA, and continues statin. HD stable, NAD ROS: Per HPI, all other systems reviewed and neg PMH: AFIB, HLD, hx of lymphoma and breast CA PSH: L Ovary removal, adhesions, mastectomy FH: denies SH: denies tobacco, ETOH, IVDU NKDA Vitals Reviewed Temp Pulse Resp BP Pulse Ox 97.3 F L 98 H 18 169/75 H 100 05/25/17 12:53 05/25/17 12:53 05/25/17 12:53 05/25/17 12:53 05/25/17 12:30 GEN: WDWN, ALERT, COOPERATIVE HEENT: NCAT, PERRL, EOMI HEART: RRR, +S1S2, NO MRG LUNG: CTAB, NO WRR ABD: SOFT, NT, ND, NO HSM, NO MASSES EXT: NORMAL PEDAL PULSES, GOOD CAPILLARY REFILL NEURO: AAOX3, STRENGTH EQUAL BILATERAL UPPER AND LOWER EXTREMITIES SKIN: WARM, DRY PSYCH: NORMAL MOOD, NORMAL AFFECT Most Recent Lab Values WBC 8.1 K/uL (4.8-10.8) 05/25/17 10:00 RBC 5.05 Mil/uL (3.80-5.20) 05/25/17 10:00 Hgb 14.4 g/dL (12.0-16.0) 05/25/17 10:00 Hct 45.4 % (34.0-47.0) 05/25/17 10:00 MCV 89.9 fl (81.0-99.0) 05/25/17 10:00 MCH 28.6 pg (27.0-31.0) 05/25/17 10:00 MCHC 31.8 g/dL (33.0-37.0) L 05/25/17 10:00 RDW 14.3 % (11.5-14.5) 05/25/17 10:00 Plt Count 183 K/uL (130-400) 05/25/17 10:00 MPV 8.6 fl (7.2-11.7) 05/25/17 10:00 Neut % (Auto) 87.7 % (50.0-75.0) H 05/25/17 10:00 Lymph % (Auto) 6.2 % (20.0-40.0) L 05/25/17 10:00 Bowman % (Auto) 5.3 % (0.0-10.0) 05/25/17 10:00 Eos % (Auto) 0.0 % (0.0-4.0) 05/25/17 10:00 Baso % (Auto) 0.8 % (0.0-2.0) 05/25/17 10:00 Neut # 7.1 K/uL (1.8-7.0) H 05/25/17 10:00 Lymph # 0.5 K/uL (1.0-4.3) L 05/25/17 10:00 Bowman # 0.4 K/uL (0.0-0.8) 05/25/17 10:00 Eos # 0.0 K/uL (0.0-0.7) 05/25/17 10:00 Baso # 0.1 K/uL (0.0-0.2) 05/25/17 10:00 Neutrophils % (Manual) 87 % (42-75) H 05/25/17 10:00 Lymphocytes % (Manual) 7 % (20-50) L 05/25/17 10:00 Monocytes % (Manual) 5 % (0-10) 05/25/17 10:00 Basophils % (Manual) 1 % (0-2) 05/25/17 10:00 Platelet Estimate Normal (NORMAL) 05/25/17 10:00 Anisocytosis (manual) Slight 05/25/17 10:00 Ovalocytes Slight 05/25/17 10:00 Sodium 140 mmol/l (132-148) 05/25/17 10:00 Potassium 4.0 MMOL/L (3.6-5.0) 05/25/17 10:00 Chloride 106 mmol/L (98-107) 05/25/17 10:00 Carbon Dioxide 24 mmol/L (22-30) 05/25/17 10:00 Anion Gap 14 (10-20) 05/25/17 10:00 BUN 19 mg/dl (7-17) H 05/25/17 10:00 Creatinine 0.8 mg/dl (0.7-1.2) 05/25/17 10:00 Est GFR ( Amer) > 60 05/25/17 10:00 Est GFR (Non-Af Amer) > 60 05/25/17 10:00 Random Glucose 119 mg/dL (65-105) H 05/25/17 10:00 Calcium 9.8 mg/dL (8.4-10.2) 05/25/17 10:00 Urine Opiates Screen Negative (NEGATIVE) 05/25/17 10:30 Urine Methadone Screen Negative (NEGATIVE) 05/25/17 10:30 Ur Barbiturates Screen Negative (NEGATIVE) 05/25/17 10:30 Ur Phencyclidine Scrn Negative (NEGATIVE) 05/25/17 10:30 Ur Amphetamines Screen Negative (NEGATIVE) 05/25/17 10:30 U Benzodiazepines Scrn Negative (NEGATIVE) 05/25/17 10:30 U Oth Cocaine Metabols Negative (NEGATIVE) 05/25/17 10:30 U Cannabinoids Screen Negative (NEGATIVE) 05/25/17 10:30 Alcohol, Quantitative < 10 mg/dl (0-10) 05/25/17 10:00 ASSESSMENT AND PLAN 61 year old female PMH AFIB and hyperlipidemia is admitted to psych for depression and paranoia. Pt was recently discharged in the past week. She denies any other symptoms at this time. Consult for management of AFIB and HLD. Currently rate controlled and on ASA, and continues statin. HD stable, NAD AFIB continue ASA rate controlled, not on any other agents HLD continue statin Depression and Paranoia management per psych Past Patient History - Past Social History Alcohol: None Drugs: Denies - CARDIAC Hx Cardiac Disorders: Yes - PULMONARY Hx Respiratory Disorders: No - NEUROLOGICAL Hx Neurological Disorder: No - HEENT Hx HEENT Problems: No - RENAL Hx Chronic Kidney Disease: No - ENDOCRINE/METABOLIC Hx Endocrine Disorders: No - HEMATOLOGICAL/ONCOLOGICAL Hx Blood Disorders: No - INTEGUMENTARY Hx Dermatological Problems: No - MUSCULOSKELETAL/RHEUMATOLOGICAL Hx Musculoskeletal Disorders: No - GASTROINTESTINAL Hx Gastrointestinal Disorders: No - GENITOURINARY/GYNECOLOGICAL Hx Genitourinary Disorders: No - PSYCHIATRIC Hx Psychophysiologic Disorder: Yes - SURGICAL HISTORY Hx Surgeries: Yes Other/Comment: ovarian removal, lymphoma removal via chest - ANESTHESIA Hx Anesthesia: Yes Hx Anesthesia Reactions: No Meds Allergies/Adverse Reactions: Allergies Allergy/AdvReac Type Severity Reaction Status Date / Time No Known Allergies Allergy Verified 05/25/17 08:54 - Medications Medications: Current Medications Aspirin (Aspirin Chewable) 81 mg PO DAILY [facility] Home Med (Simvastatin [Zocor]) 1 tab PO DAILY ANUSHA Results - Vital Signs Recent Vital Signs: Last Vital Signs Temp 97.3 F L 05/25/17 12:53 Pulse 98 H 05/25/17 12:53 Resp 18 05/25/17 12:53 BP 169/75 H 05/25/17 12:53 Pulse Ox 100 05/25/17 12:30 - Labs Result Diagrams: 05/25/17 10:00 05/25/17 10:00 Labs: Laboratory Results - last 24 hr 05/25/17 05/25/17 05/25/17 10:00 10:00 10:30 WBC 8.1 RBC 5.05 Hgb 14.4 Hct 45.4 MCV 89.9 MCH 28.6 MCHC 31.8 L RDW 14.3 Plt Count 183 MPV 8.6 Neut % (Auto) 87.7 H Lymph % (Auto) 6.2 L Bowman % (Auto) 5.3 Eos % (Auto) 0.0 Baso % (Auto) 0.8 Neut # 7.1 H Lymph # 0.5 L Bowman # 0.4 Eos # 0.0 Baso # 0.1 Neutrophils % (Manual) 87 H Lymphocytes % (Manual) 7 L Monocytes % (Manual) 5 Basophils % (Manual) 1 Platelet Estimate Normal Anisocytosis (manual) Slight Ovalocytes Slight Sodium 140 Potassium 4.0 Chloride 106 Carbon Dioxide 24 Anion Gap 14 BUN 19 H Creatinine 0.8 Est GFR ( Amer) > 60 Est GFR (Non-Af Amer) > 60 Random Glucose 119 H Calcium 9.8 Urine Opiates Screen Negative Urine Methadone Screen Negative Ur Barbiturates Screen Negative Ur Phencyclidine Scrn Negative Ur Amphetamines Screen Negative U Benzodiazepines Scrn Negative U Oth Cocaine Metabols Negative U Cannabinoids Screen Negative Alcohol, Quantitative < 10
--- NOTE | 2017-05-25 16:06 | PCM.BM ---
<Alex Matthews Erna - Last Filed: 05/25/17 16:04> Treatment Plan Problems - Problems identified on initial assessmt Hopelessness/Helplessness Date Initiated: 05/25/17 Time Initiated: 14:30 Assessment reference: NA Status: Active (pt has been here recently) Treatment assets and liabiliti Patient Assests: adapts well, cooperative, educated, insightful, motivated, resourceful, self-reliant, ADL independent, good support system, negotiates basic needs, good past tx response, good interpersonal skills Patient Liabilities: live alone, medical problems - Milieu Protocol Maintain good personal hygiene: daily Encourage regular showers, daily Remind patient to perform daily oral care, daily Assist patient to perform ADL's Maintain personal safety: every shift Educate patient to report safety concerns to staff, every shift Monitor environment for contraband/sharps Medication safety: Monitor for expected outcome, potential side effects: every shift, Assess barriers to learning: every shift, Assess readiness for medication education: every shift Discharge/Continuing Care - Education Needs Education Needs: Patient Medication, Patient Coping Skills, Patient Community resources, Patient Activities of Daily Living <Joanne Marc - Last Filed: 05/28/17 14:28> Treatment assets and liabiliti Patient Assests: adapts well, cooperative, educated, insightful, motivated, resourceful, self-reliant, physically healthy, good support system, negotiates basic needs, good past tx response, good interpersonal skills Patient Liabilities: live alone, relationship conflicts, medical problems Family Contact Family contact: Patient agrees to contact, Family has been contacted by patient , Telephone contact initiated by staff Family contact name: Sancho (son) ([phone]) Family contacted how many times per week?: 2 Family contact comment: Heating [employer]ing [employer]ic received return phone call from patients son ( Sancho [phone]) on 05/27. Heating And Air Conditioning Mechanic provided clinical updates regarding patients progress on [facility]. Heating And Air Conditioning Mechanic explained that patient has reported feeling lonely and uneasy being in her apartment building during the holidays due to the building being quieter than usual and being unable to spend the holiday with family. Patient reports significant improvement in depression and anxiety since admission and denies paranoia. Patient confirmed that she felt ready to be discharged when discharged from [facility]. Heating And Air Conditioning Mechanic notified patients son that patient has been brighter, engaged and visible on 3NP since admission. Sancho reports "disagreeing" with the above, stating that patient "tells people what they want to hear". Patients son reports patients journal was found by family who reports journal was "paranoid and disorganized". Patients son reports that patient expressed believing that her ex- is out to harm her. Heating And Air Conditioning Mechanic expressed understanding but reiterated that medication changes and tx on 3NP will be based on symptoms reported by patient and behavior observed by staff. Heating And Air Conditioning Mechanic expressed concerns regarding patient being discharged prior to the holiday. Sancho in agreement and expressed understanding of the above. Heating And Air Conditioning Mechanic will continue to provide clinical updates through-out patients hospitalization. - Outside Agency Agency 1 Care involvment: Following patient during stay, Other Agency contact name: [facility] Agency contact number: [phone] - Goals for Treatment Patient goals for treatment: Patient to continue stabilization on 3NP through medication management and group/supportive therapy. Patient to be encouraged to attend groups regularly to promote self-awareness, compliance, and improve insight, coping skills and self-esteem. Patient to be provided with referral for appropriate level of aftercare to reduce risk of future hospitalizations and ensure safety in the community. Discharge/Continuing Care - Education Needs Education Needs: Family Medication, Family Coping Skills, Family Community resources, Family Aftercare Safety Plan, Patient Medication, Patient Coping Skills, Patient Community resources, Patient Aftercare Safety Plan - Discharge Discharge Criteria: Tolerates medication w/o severe side effects, Free of Suicidal thoughts, Free of paranoid thoughts, Free of agitation, Normal sleep pattern, Ability to care for self, Reduction of target symptoms Discharge to:: Home, Other - Treatment Team Participation Discussed with Family/SO: Yes Was Patient/Family/SO present at Treatment Team Meeting: Yes <Luz Mercado - Last Filed: 05/29/17 12:11> - Diagnosis (1) Depression Status: Acute Interventions: 05/29/17 11:43 PSYCHOTHERAPY, PHARMACOTHERAPY
[2017-05-25] MEDS ORDERED: Magnesium Hydroxide Susp 30 ml UD PO PRN (16:36)
[2017-05-25] MEDS ORDERED: Alum-Mag Hydrox-Simethicone Susp (30 mL) PO PRN (16:36)
[2017-05-25] MEDS ORDERED: DiphenhydrAMINE 50 mg/ml Inj IM PRN (16:36)
[2017-05-25] MEDS: SIMVASTATIN 20 MG PO SCH (19:02)
[2017-05-26 07:51] LABS: T4 9.86 ug/dl (5.5-11.0)
[2017-05-26] MEDS: SIMVASTATIN 20 MG PO SCH (10:10)
--- NOTE | 2017-05-26 16:25 | PCM.PSYCH ---
Initial Psychiatric Evaluation - Initial Psychiatric Evaluation Legal Status: Capacity Chief Complaint (in patient's own words): i was alone and I started feeling paranoid Patient's Reaction to Hospitalization: pt requested help History of Present Illness and Precipitating Events: pt with previous diagnosis of depression with psychosis recently discharged from this unit , reportedly pt had to spend jerod day by herself, became increasingly depressed and paranoid and started to think that her neighbours are after her , pt came to [facility] seeking help denied any current suicidal or homicidal ideations denied command hallucinations Current Medications: Active Medications Generic Name Dose Route Start Last Admin Trade Name Freq PRN Reason Stop Dose Admin Acetaminophen 650 mg 05/25/17 16:36 Tylenol 325mg Tab PO Q4 PRN Pain, moderate (4-7) Al Hydrox/Mg Hydrox/Simethicone 30 ml 05/25/17 16:36 Maalox Plus 30 Ml PO Q4 PRN Dyspepsia Aspirin 81 mg 05/25/17 15:00 05/26/17 10:10 Aspirin Chewable PO 81 mg DAILY ANUSHA Administration Diphenhydramine HCl 50 mg 05/25/17 16:36 Benadryl IM Q6 PRN Extrapyramidal S/S Unable PO Diphenhydramine HCl 50 mg 05/25/17 16:36 Benadryl PO Q6 PRN Extrapyramidal Symptoms Diphenhydramine HCl 50 mg 05/25/17 21:18 Benadryl PO HS PRN Sleep Duloxetine HCl 90 mg 05/25/17 22:00 05/25/17 21:15 Cymbalta PO 90 mg HS ANUSHA Administration Haloperidol 5 mg 05/25/17 16:36 Haldol PO Q4 PRN Agitation Haloperidol Lactate 5 mg 05/25/17 16:36 Haldol IM Q4 PRN Agitation, Unable to Take PO Home Med 1 tab 05/25/17 15:00 05/26/17 10:10 Simvastatin [Zocor] PO 1 tab DAILY ANUSHA Administration Lorazepam 2 mg 05/25/17 16:36 Ativan IM Q4 PRN Anxiety/Agitation,Unable PO Lorazepam 2 mg 05/25/17 16:36 Ativan PO Q4 PRN Anxiety/Agitation Magnesium Hydroxide 30 ml 05/25/17 16:36 Milk Of Magnesia PO HS PRN Constipation Risperidone 1 mg 05/25/17 22:00 05/25/17 21:15 Risperdal Tab PO 1 mg HS ANUSHA Administration Risperidone 0.25 mg 05/27/17 09:00 Risperdal Tab PO DAILY ANUSHA Past Psychiatric History - Past Psychiatric History Explanation of prior treatment: unspecified number of hospitalizations, pt linked to PACT team History of Abuse: denied History of ETOH/Drug Use: denied History of Family Illness: denied Pertinent Medical Hx (Current Medical&Sleep Prob, Allergies): Allergies Allergy/AdvReac Type Severity Reaction Status Date / Time No Known Allergies Allergy Verified 05/25/17 08:54 Simvastatin [Zocor] 1 tab PO DAILY 05/15/17 DULoxetine [Cymbalta] 30 mg PO HS 30 Days #30 ecc 05/22/17 risperiDONE [RisperDAL Tab] 1 mg PO HS 30 Days #30 tab 05/22/17 DULoxetine [Cymbalta] 60 mg PO HS 05/25/17 Mental Status Examination - Personal Presentation Personal Presentation: Looks stated age - Affect Affect: Constricted, Depressed - Motor Activity Motor Activity: Psychomotor Retardation - Reliability in Providing Information Reliability in Providing Information: Fair - Speech Speech: Relevant - Mood Mood: Depressed, Anxious - Formal Thought Process Formal Thought Process: Paranoia, Circumstantial - Hallucinations/Delusions Additional comments: denied any current perceptual disturbances, non elicited - Obsessions/Compulsions Obsessions: No Compulsions: No - Cognitive Functions Orientation: Person, Place, Situation Sensorium: Alert Attention/Concentration: Attentive Abstract Thinking: [place] Judgement: Imparied, as evidence by: Poor judgement Memory: Recent intact, as evidence by: Ability to recall events of the day - Risk Risk: Diminished functioning - Strength & Assets Inventory Strength & Assets Inventory: Employment history, Life experience DSM 5 DX - DSM 5 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
[2017-05-27] MEDS: SIMVASTATIN 20 MG PO SCH (08:55)
--- NOTE | 2017-05-27 11:56 | PCM.PYCHPN ---
Psychiatric Progress Note - Psychiatric Progress Note Patient seen today, length of contact: pt evaluated discussed with team chart reviewed Patient Chief Complaint: I am better today I guess I was very lonely Problems Identified/Issues Discussed: pt on evaluation reported mood better presenting with brighter affect and less anxious , reported clearing off of the paranoid delusions no reported side effects of medications denied any current suicidal or homicidal ideations denied perceptual disturbances Medical Problems: unspecified number of hospitalizations, pt linked to PACT team DSM 5 Symptoms Update: major depression recurrent severe with psychotic features Medication Change: No Medical Record Reviewed: Yes Mental Status Examination - Cognitive Function Orientation: Person, Place, Situation Memory: Intact Attention: WNL Concentration: WNL Association: WNL Fund of Knowledge: WN Decription of patient's judgement and insights: fair insight and poor judgement - Mood Mood: Depressed, Anxious - Affect Affect: Constricted, Depressed - Speech Speech: Appropriate, Soft - Formal Thought Process Formal Thought Process: Paranoia, Circumstantial - Homicidal Ideation Homicidal Ideation: No Goal/Treatment Plan - Goal/Treatment Plan Need for Continued Stay: Severe depression anxiety, Discharge may exacerbated symptoms Progress Toward Problem(s) and Goals/Treatment Plan: continue with duloxetine 90mg and risperidone 1.25 mg CBT group and supportive therapy Estimated Date of D/C: 06/02/17
[2017-05-28] MEDS: SIMVASTATIN 20 MG PO SCH (08:57)
--- NOTE | 2017-05-28 11:35 | PCM.PYCHPN ---
Psychiatric Progress Note - Psychiatric Progress Note Patient seen today, length of contact: pt evaluated discussed with team chart reviewed Patient Chief Complaint: I am better today Problems Identified/Issues Discussed: pt on evaluation reported mood better presenting with brighter affect and less anxious , reported clearing off of the paranoid delusions no reported side effects of medications denied any current suicidal or homicidal ideations denied perceptual disturbances Medical Problems: unspecified number of hospitalizations, pt linked to PACT team DSM 5 Symptoms Update: major depression severe with psychotic features Medication Change: No Medical Record Reviewed: Yes Mental Status Examination - Cognitive Function Orientation: Person, Place, Situation Memory: Intact Attention: WNL Concentration: WNL Association: [facility] Fund of Knowledge: [facility] Decription of patient's judgement and insights: fair insight and poor judgement - Mood Mood: Depressed - Affect Affect: Constricted, Depressed - Speech Speech: Appropriate, Soft - Formal Thought Process Formal Thought Process: Paranoia, Circumstantial - Suicidal Ideation Suicidal Ideation: No - Homicidal Ideation Homicidal Ideation: No Goal/Treatment Plan - Goal/Treatment Plan Need for Continued Stay: Severe depression anxiety, Discharge may exacerbated symptoms Progress Toward Problem(s) and Goals/Treatment Plan: continue with duloxetine 90mg and risperidone 1.25 mg CBT group and supportive therapy Estimated Date of D/C: 06/02/17
[2017-05-29] MEDS: SIMVASTATIN 20 MG PO SCH (08:41)
--- NOTE | 2017-05-29 12:15 | PCM.PYCHPN ---
Psychiatric Progress Note - Psychiatric Progress Note Patient seen today, length of contact: pt evaluated discussed with team chart reviewed Patient Chief Complaint: I am better today but I feel anxious about being alone Problems Identified/Issues Discussed: pt on evaluation reported mood better presenting with brighter affect , reported clearing off of the paranoid delusions pt continues to verbalize feeling anxious and worried about being by herself in her own apartment , discussed with pt alternative thoughts and models to challenge the negative thoughts, pt was able to verbalize some positive coping skills with the anxiety no reported side effects of medications denied any current suicidal or homicidal ideations denied perceptual disturbances Medical Problems: unspecified number of hospitalizations, pt linked to PACT team DSM 5 Symptoms Update: major dperession generalized anxiety Medication Change: No Medical Record Reviewed: Yes Mental Status Examination - Cognitive Function Orientation: Person, Place, Situation Memory: Intact Attention: WNL Concentration: WNL Association: WNL Fund of Knowledge: [facility] Decription of patient's judgement and insights: fair insight and poor judgement - Mood Mood: Depressed - Affect Affect: Constricted, Depressed - Speech Speech: Appropriate, Soft - Formal Thought Process Formal Thought Process: Paranoia, Circumstantial - Suicidal Ideation Suicidal Ideation: No - Homicidal Ideation Homicidal Ideation: No Goal/Treatment Plan - Goal/Treatment Plan Need for Continued Stay: Severe depression anxiety, Discharge may exacerbated symptoms Progress Toward Problem(s) and Goals/Treatment Plan: continue with duloxetine 90mg and risperidone 1.25 mg CBT group and supportive therapy Estimated Date of D/C: 06/02/17
[2017-05-30] MEDS: SIMVASTATIN 20 MG PO SCH (09:11)
--- NOTE | 2017-05-30 12:26 | PCM.PYCHPN ---
Psychiatric Progress Note - Psychiatric Progress Note Patient seen today, length of contact: pt evaluated discussed with team chart reviewed Patient Chief Complaint: I am alright Problems Identified/Issues Discussed: pt on evaluation reported mood better presenting with brighter affect , reported clearing off of the paranoid delusions, interacting with other peers no reported changes in sleep or appetite pt continues to verbalize feeling anxious and worried about being by herself in her own apartment , discussed with pt alternative thoughts and models to challenge the negative thoughts, pt was able to verbalize some positive coping skills with the anxiety no reported side effects of medications denied any current suicidal or homicidal ideations denied perceptual disturbances Medical Problems: unspecified number of hospitalizations, pt linked to PACT team DSM 5 Symptoms Update: major depression generalized anxiety disorder Medication Change: No Medical Record Reviewed: Yes Mental Status Examination - Cognitive Function Orientation: Person, Place, Situation Memory: Intact Attention: WNL Concentration: WNL Association: WNL Fund of Knowledge: [facility] Decription of patient's judgement and insights: fair insight and poor judgement - Mood Mood: Depressed - Affect Affect: Constricted, Depressed - Speech Speech: Appropriate, Soft - Formal Thought Process Formal Thought Process: Paranoia, Circumstantial - Suicidal Ideation Suicidal Ideation: No - Homicidal Ideation Homicidal Ideation: No Goal/Treatment Plan - Goal/Treatment Plan Need for Continued Stay: Severe depression anxiety, Discharge may exacerbated symptoms Progress Toward Problem(s) and Goals/Treatment Plan: continue with duloxetine 90mg and risperidone 1.25 mg CBT group and supportive therapy Estimated Date of D/C: 06/02/17
[2017-05-31] MEDS: SIMVASTATIN 20 MG PO SCH (09:31)
--- NOTE | 2017-05-31 11:08 | PCM.PYCHPN ---
Psychiatric Progress Note - Psychiatric Progress Note Patient seen today, length of contact: pt evaluated discussed with team chart reviewed Patient Chief Complaint: I slept well last night Problems Identified/Issues Discussed: pt on evaluation reported mood better presenting with brighter affect , reported clearing off of the paranoid delusions, interacting with other peers no reported changes in sleep or appetite no reported side effects of medications denied any current suicidal or homicidal ideations denied perceptual disturbances Medical Problems: unspecified number of hospitalizations, pt linked to PACT team DSM 5 Symptoms Update: major depression generalized anxiety disorder Medication Change: No Medical Record Reviewed: Yes Mental Status Examination - Cognitive Function Orientation: Person, Place, Situation Memory: Intact Attention: WNL Concentration: WNL Association: WNL Fund of Knowledge: WN Decription of patient's judgement and insights: fair insight and poor judgement - Mood Mood: Neutral - Affect Affect: Constricted, Depressed - Speech Speech: Appropriate, Soft - Formal Thought Process Formal Thought Process: Circumstantial - Suicidal Ideation Suicidal Ideation: No - Homicidal Ideation Homicidal Ideation: No Goal/Treatment Plan - Goal/Treatment Plan Need for Continued Stay: Severe depression anxiety, Discharge may exacerbated symptoms Progress Toward Problem(s) and Goals/Treatment Plan: continue with duloxetine 90mg and risperidone 1.25 mg CBT group and supportive therapy Estimated Date of D/C: 06/02/17
[2017-06-01] MEDS: SIMVASTATIN 20 MG PO SCH (09:39)
--- NOTE | 2017-06-01 11:02 | PCM.PYCHPN ---
Psychiatric Progress Note - Psychiatric Progress Note Patient seen today, length of contact: pt evaluated discussed with team chart reviewed Patient Chief Complaint: I am ready to face the outside Problems Identified/Issues Discussed: pt on evaluation reported mood better presenting with brighter affect , reported clearing off of the paranoid delusions, interacting with other peers no reported changes in sleep or appetite no reported side effects of medications denied any current suicidal or homicidal ideations denied perceptual disturbances Medical Problems: unspecified number of hospitalizations, pt linked to PACT team DSM 5 Symptoms Update: major depression generalized anxiety disorder Medication Change: No Medical Record Reviewed: Yes Mental Status Examination - Cognitive Function Orientation: Person, Place, Situation Memory: Intact Attention: WNL Concentration: WNL Association: WNL Fund of Knowledge: WN Decription of patient's judgement and insights: fair insight and poor judgement - Mood Mood: Neutral - Affect Affect: Constricted, Depressed - Speech Speech: Appropriate, Soft - Formal Thought Process Formal Thought Process: Circumstantial - Suicidal Ideation Suicidal Ideation: No - Homicidal Ideation Homicidal Ideation: No Goal/Treatment Plan - Goal/Treatment Plan Need for Continued Stay: Severe depression anxiety, Discharge may exacerbated symptoms Progress Toward Problem(s) and Goals/Treatment Plan: continue with duloxetine 90mg and risperidone 1.25 mg CBT group and supportive therapy Estimated Date of D/C: 06/02/17
[2017-06-01 17:21] VITALS: BP 113/58; PULSE 87; RESP 18; TEMP 99
[2017-06-02] MEDS: SIMVASTATIN 20 MG PO SCH (09:30)
--- NOTE | 2017-06-02 13:52 | PCM.PYCHDC ---
Mental Status Examination - Mental Status Examination Orientation: Person, Place, Situation Memory: Intact Mood: Neutral Affect: Broad Speech: Appropriate Attention: WNL Concentration: WNL Association: WNL Fund of Knowledge: WNL Formal Thought Process: No Impairment Description of patient's judgement and insight: partial insight and fair judgement Psychotic Thoughts and Behaviors: pt denied any current psychotic symptoms and non elicited Suicidal Ideation: No Current Homicidal Ideation?: No Discharge Summary - Discharge Note Reason for Hospitalization: pt with previous diagnosis of depression with psychosis recently discharged from this unit , reportedly pt had to spend jerod day by herself, became increasingly depressed and paranoid and started to think that her neighbours are after her , pt came to [facility] seeking help denied any current suicidal or homicidal ideations denied command hallucinations Psychiatric History (includes Medical, Family, Personal Hx): hx of major depression Consultations:: List each consultation separately and include: 1. Reason for request. 2. Findings. 3. Follow-up Consultations: family practice Summary of Hospital Course include:: 1. Description of specific treatment plan utilized for patients during their course of treatmen. 2. Summarize the time- course for resolution of acute symptoms and/or regressed behaviors. 3. Describe issues identified and worked on during hospitalization. 4. Describe medication utilized. 5. Describe medical problems identified and treated. 6. Reassessment of suicide risk Summary of Hospital Course: pt on admission was started on cymbalta 90mg, risperidone was increased to 1.25mg daily CBT and supportive therapy provided no reported side effects of medications on discharge pt mental status was stable, pt denied any current suicidal or homicidal ideations, denied perceptuald duisturbances, non were ekllicited PACT team will follow up on pt - Diagnosis (1) Depression Current Visit: Yes Status: Acute - Final Diagnosis (DSM 5) Condition upon Discharge: FAIR DSM 5: major depression recurrent severe with psychotic features Disposition: HOME/ ROUTINE Follow-up Treatment Plan: continue with duloxetine 90mg and risperidone 1.25 mg CBT group and supportive therapy Prescriptions/Medication Reconciliation: DULoxetine [Cymbalta] 90 mg PO HS 30 Days #90 ecc risperiDONE [RisperDAL Tab] 0.25 mg PO DAILY 30 Days #30 tab risperiDONE [RisperDAL Tab] 1 mg PO HS 30 Days #30 tab
== END 2017-06-02 12:35 | disposition home or self-care (01) | DRG 885 ==
LOC: H.ER 08:51 → H.ERHOLD 09:58 → H.PSYCH 13:05
PROVIDERS: ADMIT Psychiatry & Neurology Psychiatry; ATTEND Psychiatry & Neurology Psychiatry
PROC: GZHZZZZ Group Psychotherapy (ICD-10-PCS; principal; 2017-05-25)
PROC: GZ58ZZZ Individual Psychotherapy, Cognitive-Behavioral (ICD-10-PCS; 2017-05-25)
PROC: GZ56ZZZ Individual Psychotherapy, Supportive (ICD-10-PCS; 2017-05-25)
DX: F33.3 Major depressive disorder, recurrent, severe with psychotic symptoms (principal); I48.91 Unspecified atrial fibrillation; E78.00 Pure hypercholesterolemia, unspecified; F41.1 Generalized anxiety disorder; E78.5 Hyperlipidemia, unspecified; Z85.72 Personal history of non-Hodgkin lymphomas; Z85.3 Personal history of malignant neoplasm of breast